=== PATIENT | female | born 2000 | race Caucasian/White ===

== ENCOUNTER 2022-06-21 12:39 | Emergency (ER) | payer BC ==
[~2022-06-21] VITALS: Ht 162.6 cm; Wt 6.1 kg
[2022-06-21] MEDS ORDERED: LORazepam 1 MG tablet PO ONE (13:00)
[2022-06-21] MEDS ORDERED: ibuprofen tablet 400 MG TABLET PO ONE (13:00)
[2022-06-21 13:37] LABS: BASOPHILS % (AUTO) 0.4 % (0-1); EOSINOPHILS # (AUTO) 0.1 X10'3 (0-0.9); EOSINOPHILS % (AUTO) 1.2 % (0-6); HEMATOCRIT 42.8 % (35.0-45.0); HEMOGLOBIN 14.5 g/dl (12.0-16.0); LYMPHOCYTES # (AUTO) 0.9 X10'3 (1.1-4.8); LYMPHOCYTES % (AUTO) 9.9 % (21-51); MEAN CORPUSCULAR HEMOGLOBIN 30.6 PG (27.0-31.0); MEAN CORPUSCULAR HGB CONC 33.8 g/dL (33.0-36.5); MEAN CORPUSCULAR VOLUME 90.4 FL (78-98); MEAN PLATELET VOLUME 9.6 FL (7.4-10.4); MONOCYTES # (AUTO) 0.6 X10'3 (0-0.9); MONOCYTES % (AUTO) 6.2 % (2-12); NEUTROPHILS # (AUTO) 7.6 X10'3 (1.8-7.7); NEUTROPHILS % (AUTO) 82.3 % (42-75); PLATELET COUNT 216 X10'3 (140-440); RED BLOOD COUNT 4.73 X10'6 (4.20-5.60); RED CELL DISTRIBUTION WIDTH 11.9 % (11.5-14.5); WHITE BLOOD COUNT 9.2 X10'3 (4.5-11.0)
[2022-06-21 13:39] LABS: ALANINE AMINOTRANSFERASE 20 U/L (12-78); ALBUMIN 4.1 G/DL (3.4-5.0); ALBUMIN/GLOBULIN RATIO 1.1 (1.1-1.5); ALKALINE PHOSPHATASE 61 IU/L (46-116); ANION GAP 10 (8-16); ASPARTATE AMINO TRANSFERASE 17 U/L (10-37); BILIRUBIN,TOTAL 0.6 MG/DL (0.1-1.0); BLOOD UREA NITROGEN 11 MG/DL (7-18); BUN/CREATININE RATIO 13.1 (6.6-38.0); CALCIUM 9.2 MG/DL (8.5-10.1); CHLORIDE 105 MMOL/L (99-107); CREATININE 0.84 MG/DL (0.40-0.90); GLUCOSE 94 MG/DL (70-104); POTASSIUM 3.9 MMOL/L (3.5-5.1); SODIUM 140 MMOL/L (135-145); TOTAL CARBON DIOXIDE 25.5 MMOL/L (24-32); TOTAL PROTEIN 7.9 G/DL (6.4-8.2); eGFR 85 ML/MIN
[2022-06-21 13:48] LABS: ETHANOL < 0.010 GM/DL (0.0-0.010)
--- NOTE | 2022-06-21 14:36 | NUR ---
RN received pt. from [facility]. Pt. gave urine and changed into green scrubs. Belongings inventoried.
[2022-06-21 15:00] LABS: URINE HCG NEGATIVE (NEG)
[2022-06-21 15:01] LABS: CLARITY,URINE CLEAR (Clear); COLOR,URINE YELLOW (Yellow); GLUCOSE, URINE NEGATIVE (Neg); KETONES,URINE NEGATIVE (Neg); LEUKOCYTE ESTERASE ,URINE NEGATIVE (Neg); NITRITES, URINE NEGATIVE (Neg); OCCULT BLOOD,URINE NEGATIVE (Neg); PROTEIN,URINE NEGATIVE (Neg); UROBILINOGEN,URINE 0.2 E.U/dL (0.2-1.0)
[2022-06-21 15:06] LABS: UA COLLECTION TYPE CLN CATCH MIDSTREAM
[2022-06-21 15:20] LABS: URINE AMPHETAMINE SCREEN NEGATIVE (Neg); URINE BARBITUATE SCREEN NEGATIVE (Neg); URINE BENZODIAZEPINES SCREEN NEGATIVE (Neg); URINE CANNABINOID SCREEN NEGATIVE (Neg); URINE COCAINE SCREEN NEGATIVE (Neg); URINE METHADONE SCREEN NEGATIVE (Neg); URINE OPIATE SCREEN NEGATIVE (Neg); URINE PHENCYCLIDINE SCREEN NEGATIVE (Neg)
--- NOTE | 2022-06-21 15:24 | NUR ---
tech faxed pt packet to [facility]
--- NOTE | 2022-06-21 16:30 | NUR ---
Pt. awake and sitting quietly in bed. Pt. given Ativan 2mg po for anxiety and Ibuprofen 600mg po for RODRIGUEZ with good effect.
[2022-06-21] MEDS ORDERED: NO HOME MEDS (17:19)
--- NOTE | 2022-06-21 18:47 | NUR ---
One to one with the patient. She is resting on her bed with a flat affect and wearing dark glasses. Her replies are very minimal. Her speech is soft and monotone. She reports that she has not been sleeping for past 4 days and she stated that it was because she is having night terrors. She is refusing to take any medications while here. She reports increased anxiety. She was asked to describe her mood and she replied, "I'm pissed off and I just don't care"
--- NOTE | 2022-06-21 18:59 | NUR ---
Nurse to nurse with Marcia Riggins
--- NOTE | 2022-06-21 19:02 | NUR ---
The patient has been accepted at [place]. [facility] with arrange transport in the AM
--- NOTE | 2022-06-21 20:38 | NUR ---
The patient is resting quietly resting on her bed.
--- NOTE | 2022-06-21 21:01 | NUR ---
The patient up to the nursing station and asking for medications for anxiety. Discussed with Dr. Aguilera and orders received.
[2022-06-21] MEDS ORDERED: hydrOXYzine 25 MG tablet PO ONE (21:05)
--- NOTE | 2022-06-21 22:52 | NUR ---
The patient appears to be sleeping
--- NOTE | 2022-06-22 00:32 | NUR ---
The patient appears to be sleeping
--- NOTE | 2022-06-22 02:55 | NUR ---
The patient appears to be sleeping
--- NOTE | 2022-06-22 06:03 | NUR ---
The patient is awake after being disturbed by an agitated patient.
--- NOTE | 2022-06-22 06:32 | NUR ---
Pt up to use the bathroom.
--- NOTE | 2022-06-22 07:16 | NUR ---
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
--- NOTE | 2022-06-22 07:17 | NUR ---
Box breakfast obtained to send with pt but she refused it.
--- NOTE | 2022-06-22 07:18 | NUR ---
Pt transferred to [facility], all belongings returned including her own meds from the pharmacy and things in the safe. Ambulated off the unit accompanied by sprinkler truck driver and security.
[2022-06-22 07:20] VITALS: BP 116/72
== END 2022-06-22 07:18 ==
LOC: ER 12:41
DX: F33.1 Major depressive disorder, recurrent, moderate (principal); Z20.822 Contact with and (suspected) exposure to COVID-19; R45.851 Suicidal ideations; G43.909 Migraine, unspecified, not intractable, without status migrainosus; Z88.2 Allergy status to sulfonamides; Z79.899 Other long term (current) drug therapy; F31.9 Bipolar disorder, unspecified
CPT/HCPCS: 36415; 80053; 80305; 80320; 81003; 81025; 84443; 85025; 87811; 99285; Q0177